=== PATIENT | female | born 1955 | race Caucasian/White ===

== ENCOUNTER → 2019-12-16 | Outpatient (CLI) | payer MEDICARE ==
[~2019-12-16] MED LIST: IOPAMIDOL 370 MG/ML 200 ML INFUS..BTL INJ ONE; SODIUM CHLORIDE 0.9% 100 ML ONE
[2019-12-16 14:53] LABS: BLOOD UREA NITROGEN 5 mg/dL (7-26); BUN/CREATININE RATIO 7 (6-25); CREATININE, SERUM 0.72 mg/dL (0.57-1.11); EST GLOMERULAR FILTRATION RATE > 60 ML/MIN (60-)
--- NOTE | 2019-12-17 10:40 | Diagnostic Imaging Report ---
Exam: Abdominal and pelvic CTA with bilateral lower extremity runoff Clinical history: Peripheral vascular disease Technique: Helical images of the abdomen, pelvis, and bilateral lower extremities were performed after IV contrast demonstration during the arterial phase. Findings: The abdominal aorta is normal in caliber without significant atherosclerotic disease. The origins of the great vessels are patent. High-grade focal stenosis is noted in the right mid external iliac artery. Calcified plaque is noted in the distal common femoral artery with mild to moderate stenosis. The right superficial femoral artery is patent without flow-limiting stenosis. The popliteal artery is occluded above the knee. The perineal and the anterior tibial artery is reconstituted at the mid calf. Collateral and appears to be the main runoff artery to the foot. The left common iliac to superficial femoral arteries are patent without flow-limiting stenosis. The left popliteal artery also appears patent, however, at the level of trifurcation, there is one vessel runoff via the peroneal artery which is occluded proximally. The posterior tibial artery is reconstituted at the mid calf and reached the level of the ankle. The lung bases are clear. There is no evidence of pleural effusion. The cardiac size is within normal limits. The liver, spleen, pancreas, gallbladder, adrenal glands, and kidneys are unremarkable. The small and large bowels are normal in caliber without evidence of obstruction. The bladder and uterus are unremarkable. The ovaries were not clearly identified. There is no evidence of lymphadenopathy or free fluid. Impression: 1. 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 2. High-grade focal stenosis involving the right external iliac artery. Signed by: Dr. Maynor Coreas MD on 12/17/2019 10:37 AM
== END ==
LOC: CT 14:06
PROVIDERS: ATTEND Family Medicine
DX: I73.9 Peripheral vascular disease, unspecified (principal)
CPT/HCPCS: 36415; 75635; 82565; 84520; J7050; Q9967

== ENCOUNTER → 2021-10-11 | Day surgery (SDC) | payer MEDICARE ==
[~2021-10-11] MED LIST changes: +FENTANYL CITRATE/PF 100MCG/2 ML INJ ONE; +GLUCAGON FOR INJ 1 MG VIAL ONE; +HYOSCYAMINE SULFATE 0.5 MG/ML INJ ONE; -IOPAMIDOL 370 MG/ML 200 ML INFUS..BTL INJ ONE; +LIDOCAINE HCL 2% LOCAL INJ 5 ML SDV VIAL INJ ONE; +LIPITOR10 MG PO; +LOSARTAN POTASS25 MG PO; +MIDAZOLAM HCL 2 MG/2 ML VIAL ONE; +PLAVIX75 MG PO; +POVIDONE IODINE 0.05% 0.05 % ML PO ONE; +PROPOFOL IV EMULSION 10 MG/ML 20 ML VIAL ONE; -SODIUM CHLORIDE 0.9% 100 ML ONE
[2021-10-11 12:45] LABS: BASOPHILS # (AUTO) 0.1 (0.0-0.1); BASOPHILS % 0.8 % (0.0-1.0); EOSINOPHILS # (AUTO) 0.1 (0.0-0.4); EOSINOPHILS % 0.8 % (0.0-6.0); HEMATOCRIT 47.8 % (34.2-44.1); LYMPHOCYTES # (AUTO) 1.9 (1.0-3.2); MEAN CORPUSCULAR HEMOGLOBIN 32.9 pg (28-32); MEAN CORPUSCULAR HGB CONC 33.5 g/dL (31-35); MEAN CORPUSCULAR VOLUME 98.4 fL (81-99); MONOCYTES % 12.1 % (4.4-11.3); NEUTROPHILS # (AUTO) 4.9 (2.1-6.9); NEUTROPHILS % 61.9 % (38.7-80.0); PLATELET COUNT 368 x10e3/uL (140-360); RED BLOOD COUNT 4.86 x10e6/uL (3.6-5.1)
[2021-10-11 15:45] VITALS: BP 123/82
== END | disposition home or self-care (01) ==
LOC: OR 12:06
PROVIDERS: ATTEND Internal Medicine Gastroenterology
DX: R19.5 Other fecal abnormalities (principal); K29.50 Unspecified chronic gastritis without bleeding; D12.0 Benign neoplasm of cecum; D12.8 Benign neoplasm of rectum; K20.90 Esophagitis, unspecified without bleeding; K64.8 Other hemorrhoids; I10 Essential (primary) hypertension; I73.9 Peripheral vascular disease, unspecified; E78.5 Hyperlipidemia, unspecified; F17.210 Nicotine dependence, cigarettes, uncomplicated; Z71.6 Tobacco abuse counseling; Z01.810 Encounter for preprocedural cardiovascular examination; Z01.812 Encounter for preprocedural laboratory examination; Z20.822 Contact with and (suspected) exposure to COVID-19; Z79.02 Long term (current) use of antithrombotics/antiplatelets; Z79.82 Long term (current) use of aspirin; Z79.899 Other long term (current) drug therapy; Z85.828 Personal history of other malignant neoplasm of skin
CPT/HCPCS: 36415; 43239; 45385; 85025; 93005; J1610; J1980; J2001; J2250; J2704; J3010; U0002; 45378